=== PATIENT | female | born 1960 | race Caucasian/White ===

== ENCOUNTER 2024-12-16 08:26 | Outpatient (CLI) | payer BC, SELFPAY ==
--- OUTSIDE RECORDS SUMMARY | 2024-12-16 08:40 | XMS_ITS | Referral Summary ---
Author Organization [facility] Address [address] [place] [address] Care Team Providers Care Digester Hand Name Role Phone Petra Silver DO Primary Care Provider [phone]- [phone] Unknown, Notinfile Unavailable Unavailable Allergies No known active allergies Medications olopatadine (PATADAY) 0.2 % ophthalmic solution Administer 1 drop into both eyes daily as needed for allergies. 2.5 mL 3 8 Active Additional Information Patient not taking.Reported on 07/21/2024 atorvastatin (LIPITOR) 10 mg tablet 9 Active omeprazole (PriLOSEC) 20 mg capsule Take 1 capsule (20 mg total) by mouth daily Active hydrOXYzine (ATARAX) 25 mg tablet 1 Active Xarelto 20 mg tablet 2 Active sodium, potassium & mag sulfates (SUPREP BOWEL KIT) 17.5-3.13-1.6 gram recon solnIndications :Bowel Evacuation Drink first half of prep at 6:00pm the night before procedure. Drink second half of prep 4 hours prior to leaving home for procedure. 354 mL 3 Active Additional Information Patient not taking.Reported on 07/21/[address] (VOLTAREN) 75 mg EC tablet Take 1 tablet (75 mg total) by mouth as needed for pain 5 Active benzonatate (TESSALON) 100 mg capsuleIndicati ons:Cough Take 1 capsule (100 mg total) by mouth 3 (three) times a day as needed for cough 21 capsule Active Active Problems Problem Noted Date Diagnosed Date Screening for malignant neoplasm of colon 2022 Routine eye exam 10/16/2018 Myopia of both eyes 10/16/2018 Immunizations Immunization Administration Dates Next Due Pfizer SARS-CoV-2 Monovalent Vaccination (12+ Yrs) PURPLE 07/19/2020,06/23/2020 Social History Tobacco Use Types Packs/Day Years Used Date Smoking Tobacco: Never Smokeless Tobacco: Never Tobacco Cessation:Counseling Given: Not Answered Alcohol Use Standard Drinks/Week Comments Not Currently 0 (1 standard drink = 0.6 oz pur e alcohol) rarely AUDIT-C Answer Date Recorded Q1: How often do you have a drink containing alc ohol? Monthly or less 03/21/2023 Q2: How many drinks containi ng alcohol do you have on a typical day when you are drinking? 1 or 2 03/21/2023 Q3: How often do you have si x or more drinks on one occasion? Never 03/21/2023 PHQ-2 Answer Date Recorded PHQ-2 Total Score (If total score is 3 or more points, staff should administer the PHQ-9) 0 08/16/2020 Personal Safety Answer Date Recorded Have you ever been in or are you currently in a harmful physical or emotional relationship or is someone making you feel afraid or unsafe? 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 Gender Identity Female 02/24/2021 8:37 AM CDT Sexual Orientation Straight 02/24/2021 8: 37 AM CDT Last Filed Vital Signs Vital Sign Reading Time Taken Comments Blood Pressure 131/85 09/05/2024 5:00 AM CDT Pulse 81 09/05/2024 5:10 AM CDT Temperature 36.8 C (98.2 F) 09/05/2024 5:00 AM CDT Respiratory Rate 17 09/05/2024 5:10 AM CDT Oxygen Saturation 95% 09/05/2024 5:10 AM CDT Inhaled Oxygen Concentration - - Weight 76.3 kg (168 lb 3.4 oz) 09/05/2024 1:39 A M CDT Height 165.1 cm (5' 5) 09/05/2024 1:39 AM CDT Body Mass Index 27.99 09/05/2024 1:39 AM CDT Plan of Treatment Not on file Procedures Procedure Name Priority Date/Time Associated Diagnosis Comments SCREENING MAMMOGRAM BILATERAL W RUFUS Schedule Routine, Read Routine (OP Routine) 12/02/2023 10:47 AM CDT Screening mammogram, encounter for COLONOSCOPY 03/21/2023 10:18 AM CDT HEPATITIS C ANTIBODY Routine Gen Lab 04/18/2017 9:19 AM PURE PAK MACHINE OPERATOR from Last 3 Months or Most Recently Relevant to Health Maintenance Results * Screening Mammogram Bilateral W Rufus (12/02/2023 10:47 AM CDT) Anatomical Region Laterality Modality Breast Bilateral Mammography Narrative 12/03/2023 10:17 AM CDT Mammogram Technique: Bilateral Digital Breast Tomosynthesis, Bilateral C-view 2D Screening mammogram. Views obtained: bilateral craniocaudal and bilateral mediolateral oblique. Computer Aided Detection was performed. Mammogram Findings: The present examination has been compared to prior imaging studies performed at [facility] on 10/03/2021, 11/14/2021 and 11/29/2022. The breasts are heterogeneously dense, which may obscure small masses. There are calcifications in both breasts. There is no suspicious abnormality in either breast. Impression: Calcifications in both breasts are benign. Annual screening mammography is recommended. If supplemental screening is desired, breast MRI would be recommended in this patient with heterogeneously dense breasts. OVERALL FINAL ASSESSMENT: BI-RADS CATEGORY 2: Benign. Procedure Note Danna Silver MD - 12/03/2023 Mammogram Technique: Bilateral Digital Breast Tomosynthesis, Bilateral C-view 2D Screening mammogram. Views obtained: bilateral craniocaudal and bilateral mediolateral oblique. Computer Aided Detection was performed. Mammogram Findings: The present examination has been compared to prior imaging studies performed at [facility] on 10/03/2021, 11/14/2021 and 11/29/2022. The breasts are heterogeneously dense, which may obscure small masses. There are calcifications in both breasts. There is no suspicious abnormality in either breast. Impression: Calcifications in both breasts are benign. Annual screening mammography is recommended. If supplemental screeningis desired, breast MRI would be recommended in this patient with heterogeneously dense breasts. OVERALL FINAL ASSESSMENT: BI-RADS CATEGORY 2: Benign. us Self Screening Mammogram IMG MAMMO PROCEDURES Fi nal Result * COLONOSCOPY (03/21/2023 10:18 AM CDT) Anatomical Region Laterality Modality Other Narrative Procedure Note Nacho Pereira MD - 03/21/2023 10:18 AM CDT [facility] Patient Name: Raymond Ceja Procedure Date: 03/21/2023 10:18 AM Date of : 1960 Admit Type: Outpatient Age: 63 Gender: Female Attending MD: Nacho Pereira M.D. Room: [facility] ENDOSCOPY ROOM 02 Note Status: Finalized Procedure: Colonoscopy Indications: Screening for colorectal malignant neoplasm, Last colonoscopy: 2012 Referring MD: Petra Silver D.O. Providers: Nacho Pereira M.D. Medicines: Propofol per Anesthesia Complications: No immediate complications. Estimated blood loss:None. Estimated Blood Loss: Estimated blood loss: none. Procedure: Pre-Anesthesia Assessment: - Immediately prior to administration ofmedications, the patient was re-assessed for adequacy to receive sedatives. - Sedation was administered by an anesthesia professional. General anesthesia was attained. - The physical status of the patient wasre-assessed after the procedure. The benefits, risks and alternatives of theprocedure and sedation were discussed and informed consentwas obtained. All questions were answered. Please referto the signed informed consent document in the medical record. The scope was passed under direct vision.The [id number] was introduced through the anusand advanced to the the cecum, identified byappendiceal orifice and ileocecal valve. The colonoscopy was performed with ease. The patient tolerated the procedure well. The quality of the bowelpreparation was excellent. The quality of the bowel preparation was evaluated using the BBPS ([place] BowelPreparation Scale) with scores of: Right Colon = 3, Transverse Colon = 3 and Left Colon = 3 (entire mucosa seenwell with no residual staining, small fragments of stoolor opaque liquid). The total BBPS score equals 9. The bowel preparation used was SUPREP via split dose instruction. Findings: The entire examined colon appeared normal. Impression: - The entire examined colon is normal. - No specimens collected. Recommendation: - [facility] Electronically signed by Dr.Matthew Randall M.D. Nacho Pereira M.D. 03/21/2023 10:47:35 AM . Number of Addenda: 0 Note Initiated On: 03/21/2023 10:18 AM Recognized by the [place] [employer] for promoting quality in endoscopy us Nacho Pereira MD ENDOSCOPY PROCEDURES Final R esult * Hepatitis C antibody (04/18/2017 9:19 AM PURE PAK MACHINE OPERATOR) Hep C Ab Nonreactive Nonreactive [facility] Comment: Interpretive Data Positive and greyzone results should be confirmed by a molecular method. If positive or greyzone, a second separately collected sample should be submitted for Hepatitis C Virus RNA. Detection and Quantitation by Real-Time Reverse Medical Referral Coordinator-PCR.Current Interpretive data was last revised on 2016. Blood specimen (specimen) 04/18/2017 9:19 AM PURE PAK MACHINE OPERATOR 04/18/2017 9:30 AM PURE PAK MACHINE OPERATOR Narrative [facility] - 04/18/2017 11:13 AM PURE PAK MACHINE OPERATOR us Aman Cook MD LAB MICROBIOLOGY - GENERAL O RDERABLES Edited Result - Final [facility] Department [place] [address] from Last 3 Months or Most Recently Relevant to Health Maintenance Insurance [facility] [employer] Address: [facility] [id number] [place] [address] [employer] Address[facility] [id number] [place] [address] [employer] [facility] [employer] [employer] PL[employer] Address: [facility] [id number] [place] [address] Advance Directives For more information, please contact: [phone] * Full Code (Latest Code Status on File) Date Activated Date Inactivated Comments 03/21/2023 10:01 AM 03/21/2023 3:36 PM Care Teams Digester Hand Relationship Specialty Start Date End Date Petra Silver DO PCP - General 07/14/19 Unknown, Notinfile 07/14/19
--- OUTSIDE RECORDS SUMMARY | 2024-12-16 08:40 | XMS_ITS | Clinical Summary ---
Author Organization [facility] Address [address] [place] [address] Care Team Providers Care Newspaper Delivery Driver Name Role Phone Petra Silver DO Primary Care Provider +1- [phone] Unknown, Notinfile Unavailable Unavailable Allergies No known [...] SARS-CoV-2 Monovalent Vaccination (12+ Yrs) PURPLE 07/19/2020,06/23/2020 Surgical History Surgery Date Site/Laterality Comments TUBAL LIGATION HERNIA REPAIR Medical History Medical History Date Comments High cholesterol GERD (gastroesophageal reflux disease) Family History Medical History Relation Name Comments Macular degeneration Mother Relation Name Status Comments Mother Social History Tobacco Use Types Packs/Day Years [...] on file 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 Gender Identity Female 02/24/2021 8:37 AM CDT Sexual Orientation Straight 02/24/2021 8: 37 AM CDT Obstetrics History Last Filed Vital Signs Vital Sign Reading [...] 09/05/2024 1:39 AM CDT Plan of Treatment Health Maintenance Due Date Last Done Comments Cervical Cancer Screening 1960 DTaP/Tdap/Td Vaccine (1 - Tdap) 02/20/1971 Hepatitis B Screening 02/20/1978 Regular Well Visit/Exam 18-64 02/20/1978 Zoster Vaccine (1 of 2) 02/20/2010 Depression Screening 08/16/2021 08/16/2020 Covid-19 Vaccine ( season) 2024 03/09/2023, 07/19/2020, 06/23/2020 Breast Cancer Screening-Mammogram 12/01/2024 12/02/2023, 11/29/2022, 10/03/2021, Additional history exists Influenza Vaccine (#1) 2025 03/09/2023 Colon Cancer Screening-Colonoscopy 03/21/2033 03/21/2023, 12/25/2012 Hepatitis C Screening Completed 04/18/2017 Colon Cancer Screening-CT Colonography Discontinued 03/21/2023, 12/25/2012 Colon Cancer Screening-DNA Stool Discontinued 03/21/2023, 12/25/2012 Colon Cancer Screening-FIT Discontinued 03/21/2023, Colon Cancer Screening-Sigmoidoscopy Discontinued 03/21/2023, 12/25/2012 Pneumococcal vaccine <65 Aged Out No longer eligible based on patient's age to complete this topic Procedures Procedure Name Priority Date/Time Associated Diagnosis Comments SCREENING MAMMOGRAM BILATERAL W RUFUS Schedule Routine, Read Routine (OP Routine) 12/02/2023 10:47 AM CDT Screening mammogram, encounter for COLONOSCOPY 03/21/2023 10:18 AM CDT HEPATITIS C ANTIBODY Routine Gen Lab 04/18/2017 9:19 AM GAMBLING SUPERVISOR from Last 3 Months or Most Recently Relevant to Health Maintenance Results * Screening Mammogram Bilateral W Ruufs (12/02/2023 10:47 AM CDT) Anatomical Region Laterality Modality Breast Bilateral Mammography Narrative 12/03/2023 10:17 AM CDT Mammogram Technique: Bilateral Digital Breast Tomosynthesis, Bilateral C-view 2D Screening mammogram. Views obtained: bilateral craniocaudal and bilateral mediolateral oblique. Computer Aided Detection was performed. Mammogram Findings: The present examination has been compared to prior imaging studies performed at [facility] on 10/03/2021, 11/14/2021 and 11/29/2022. The breasts [...] compared to prior imaging studies performed at [facility] on 10/03/2021, 11/14/2021 and 11/29/2022. The breasts [...] Pereira MD - 03/21/2023 10:18 AM CDT [facility] Patient Name: Raymond Ceja Procedure Date: 03/21/2023 10:18 AM Date of : 1960 Admit Type: Outpatient Age: 63 Gender: Female Attending MD: Nacho Pereira M.D. Room: [facility] ENDOSCOPY ROOM 02 Note Status: Finalized Procedure: [...] The scope was passed under direct vision.The [id number] was introduced through the anusand advanced to the the cecum, identified byappendiceal orifice and ileocecal valve. The colonoscopy was performed with ease. The patient tolerated the procedure well. The quality of the bowelpreparation was excellent. The quality of the bowel preparation was evaluated using the BBPS ([place] BowelPreparation Scale) with scores of: Right Colon [...] Recommendation: - Repeat colonoscopy in 7-10 years forsurveillance. Electronically signed by Dr.Matthew Randall M.D. Nacho Pereira M.D. 03/21/2023 10:47:35 AM . Number of Addenda: 0 Note Initiated On: 03/21/2023 10:18 AM Recognized by the [place] [employer] for promoting quality in endoscopy Nacho Pereira MD ENDOSCOPY PROCEDURES Final R esult * Hepatitis C antibody (04/18/2017 9:19 AM GAMBLING SUPERVISOR) Hep C Ab Nonreactive Nonreactive [facility] Comment: Interpretive Data Positive and greyzone results should be confirmed by a molecular method. If positive or greyzone, a second separately collected sample should be submitted for Hepatitis C Virus RNA. Detection and Quantitation by Real-Time Reverse Sandwich Hand-PCR.Current Interpretive data was last revised on 2016. Blood specimen (specimen) 04/18/2017 9:19 AM GAMBLING SUPERVISOR 04/18/2017 9:30 AM GAMBLING SUPERVISOR Narrative [facility] - 04/18/2017 11:13 AM GAMBLING SUPERVISOR us Aman Cook MD LAB MICROBIOLOGY - GENERAL O RDERABLES Edited Result - Final [facility] Department [place] [address] from Last 3 Months or Most Recently Relevant to Health Maintenance Insurance [employer] Address[facility] [id number] [place] [id number] [employer] [employer] Address: [facility] [id number] [place] [address] [employer] Address: [facility] [id number] [place] [address] Advance Directives For more information, please contact: [phone] * Full Code (Latest Code Status on File) Date Activated Date Inactivated Comments 03/21/2023 10:01 AM 03/21/2023 3:36 PM Care Teams Newspaper Delivery Driver Relationship Specialty Start Date End Date Petra Silver DO PCP - General 07/14/19 Unknown, Notinfile 07/14/19
[2024-12-16 20:04] LABS: Hematocrit 46.6 % (37.0-47.0); Hemoglobin 14.6 g/dL (12.0-15.0); Mean Corpuscular HGB Conc 31.3 g/dl (32-36); Mean Corpuscular Hemoglobin 29.7 pg (26-34); Mean Corpuscular Volume 94.9 fl (80-100); Platelet Count Result 226 k/mm3 (150-375); Red Blood Count 4.91 M/mm3 (4.2-5.4); White Blood Count 5.3 K/mm3 (4.5-10.0)
[2024-12-16 20:08] LABS: Alanine Aminotransferase 17 U/L (6-35); Albumin Level 3.9 g/dL (3.5-5.1); Alkaline Phosphatase 73 U/L (38-126); Anion Gap 8 mmol/L (4-12); Aspartate Amino Transferase 43 U/L (14-36); Bilirubin,Total 0.6 mg/dL (0.2-1.3); Blood Urea Nitrogen 14 mg/dL (7-17); Calcium 9.3 mg/dL (8.4-10.2); Carbon Dioxide 25 mmol/L (22-30); Chloride 103 mmol/L (98-107); Cholesterol 152 mg/dL (0-200); Estimated Glomerular Filt Rate > 60; Glucose 81 mg/dL (65-110); HDL Direct 53 mg/dL; Potassium 4.1 mmol/L (3.4-5.0); Sodium 136 mmol/L (137-145); Total Protein 6.7 g/dL (6.3-8.2); Triglycerides 84 mg/dL (<150)
[2024-12-16 20:50] LABS: Thyroid Stimulating Hormone 1.000 uIU/mL (0.465-4.680)
[2024-12-21 04:07] LABS: 1,25-Dihydroxy, Vitamin D-2 <10 pg/mL (.); 1,25-Dihydroxy, Vitamin D-3 50 pg/mL (.); Total 1,25-Dihydroxy,Vitamin D 50 pg/mL (.)
== END 2024-12-16 08:27 | disposition home or self-care (01) ==
LOC: ANHGOSHLAB 08:27
PROVIDERS: PCP Family Medicine; Visit Provider Family Medicine
DX: E78.2 Mixed hyperlipidemia (principal); Z79.899 Other long term (current) drug therapy; E66.3 Overweight; E55.9 Vitamin D deficiency, unspecified
CPT/HCPCS: 36415; 80053; 80061; 82652; 84443; 85027